=== PATIENT | male | born 1970 | race Caucasian/White ===

== ENCOUNTER → 2017-01-08 | Outpatient (CLI) | payer OTHER ==
[~2017-01-08] MED LIST: GLC/500 PO; INSDGIPEN SQ; LORA-741 PO; LOSA50TA6 PO; ONDA4TAB65 PO; PRLSR20 PO; ZOLP5TAB6 PO
[2017-01-08 12:27] LABS: BLOOD UREA NITROGEN 21 mg/dl (7-18); BUN/CREATININE RATIO 19.3 (10-20); CALCIUM 8.5 mg/dl (8.5-10.1); CARBON DIOXIDE 27 mmol/L (21-32); CHLORIDE 106 mmol/L (98-107); CHOLESTEROL 195 mg/dl (0-200); GLUCOSE 163 mg/dl (70-99); SODIUM 140 mmol/L (136-145)
[2017-01-08 12:31] LABS: CHOLESTEROL/HDL RATIO 7.8; HDL CHOLESTEROL 25 mg/dl; LDL CHOLESTEROL CALCULATED 102 mg/dl; TRIGLYCERIDES 341 mg/dl (0-150); VERY LOW DENSITY LIPOPROT CALC 68 mg/dl
[2017-01-08 12:35] LABS: ESTIMATED AVERAGE GLUCOSE 166 mg/dl; HA1C FLAG Normal (Normal)
== END | disposition home or self-care (01) ==
LOC: C.LABBFT 10:34
PROVIDERS: ATTEND Internal Medicine
DX: I10 Essential (primary) hypertension (principal); E11.65 Type 2 diabetes mellitus with hyperglycemia

== ENCOUNTER 2017-08-03 16:30 | Emergency (ER) | payer OTHER ==
[~2017-08-03] VITALS: Ht 185.4 cm; Wt 132.3 kg
[~2017-08-03 16:30] MED LIST changes: -GLC/500 PO; -LORA-741 PO; -ZOLP5TAB6 PO
[2017-08-03 16:34] VITALS: TEMP 36.9; Ht 185.4 cm; Wt 132.3 kg
[2017-08-03] MEDS ORDERED: LORAZEPAM 1 MG TAB SL STA (17:20)
[2017-08-03 17:27] VITALS: O2SAT 96
[2017-08-03] MEDS ORDERED: FRS/40 PO (17:27)
[2017-08-03] MEDS ORDERED: LIRA18IN SC (17:29)
[2017-08-03] MEDS ORDERED: GABA-113 PO ×2 (17:29)
--- NOTE | 2017-08-03 17:30 | EMERGENCY ROOM VISIT NOTE ---
History Report prepared by Horace: Prabhakar Lee Under the Supervision of: Dr. Walter Leong M.D. First contact with patient: 17:12 Chief Complaint: CHEST PAIN Stated Complaint: SOB,LF SIDED CHEST PAIN COMES/GOES Nursing Triage Summary: pt reports X alexei campo has had mid sternal cp that radiates into shoulder , today increased exertional sob and nausea History of Present Illness The patient is a 46 year old male who presents to the Emergency Room with complaints of intermittent chest pain that started a couple of days ago. He rates his pain as a 6/10 in severity. The patient describes the pain as sharp needles. He states that the chest pain episodes last for 20-30 seconds and go in phases. The patient states the pain radiates into his arm, which he describes as "sitting on my arm for too long". He reports that that he has also been experiencing intermittent nausea and shortness of breath. The patient states that he also been experiencing dizziness and lightheadedness intermittently. He reports that his vision comes and goes and becomes blurry at times. The patient states that these symptoms have not happened at the same time until today. He reports that today he also started to experience lower back pain that radiated into his left ankle. The patient states that his left foot became numb and "tingly". He states that he usually can elevate his foot and have this symptom go away, but denies any relief with elevation today. The patient admits to a history of hypertension, Diabetes Mellitus, and cholecystectomy. He reports that he has a history of lower extremity edema that he takes Lasix for. The patient states that his dose was increased from 20 mg to 40 mg a couple of weeks ago. He states that he also has a history of anxiety that he takes Lorazepam for. The patient admits that he took Lorazepam this morning. 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 The patient states that he has a family history of heart problems. He denies abdominal pain. Source of History: patient Onset: a couple of days ago Position: chest Symptom Intensity: 6/10 Quality: other (sharp needles) Timing: intermittent Associated Symptoms: + SOB, + nausea, + back pain, No abdominal pain Review of Systems All systems have been listed, reviewed, and are negative other than those previously mentioned. Please see Additional Medical History Sheet. Past Medical & Surgical Medical Problems: (1) Anxiety (2) Diabetes (3) Hypertension (4) Lower extremity edema Surgical Problems: (1) Hx of cholecystectomy Family History Cancer Diabetes mellitus Heart disease Hypertension Social History Smoking Status: Never Smoker Alcohol Use: none Drug Use: none Marital Status: Housing Status: lives with family Occupation Status: employed Current/Historical Medications Scheduled Furosemide (Lasix), 40 MG PO DAILY Gabapentin (Neurontin), 600 MG PO QAM Gabapentin (Neurontin), 300 MG PO QPM Liraglutide (Victoza), 1.8 UNITS SC QAM Metformin Hcl (Glucophage), 500 MG PO BID Omeprazole (Prilosec), 20 MG PO QAM Scheduled PRN Lorazepam (Ativan), 0.5 MG PO DAILY PRN for Anxiety Ondansetron Hcl (Zofran), 1 TAB PO Q6H PRN for Nausea or Vomiting Zolpidem Tartrate (Zolpidem Tartrate), 5 MG PO HS PRN for Sleep Allergies Coded Allergies: Acetaminophen (Verified Allergy, Mild, Headache, 08/03/17) Hydrocodone (Verified Allergy, Mild, Headache, 08/03/17) Codeine (Verified Allergy, Unknown, TAKES PERCOCET AT HOME, 08/03/17) Uncoded Allergies: SULFA (Allergy, Mild, Itching, 06/14/16) Physical Exam Vital Signs Date Time Temp Pulse Resp B/P (MAP) Pulse Ox O2 Delivery O2 Flow Rate FiO2 08/03/17 20:19 85 20 135/90 94 Room Air 08/03/17 19:12 85 20 146/111 95 Room Air 08/03/17 18:28 84 16 129/99 97 Room Air 08/03/17 17:27 96 Room Air 08/03/17 17:24 95 08/03/17 16:34 36.9 100 20 176/92 96 Room Air Physical Exam GENERAL: Patient awake, alert, oriented x 3. Patient follows commands. Patient does not appear toxic. Patient is adequately hydrated and well- nourished. Appears anxious and tearful at times. SKIN: No erythema, pallor, cyanosis or rash HEENT: Normal head, pupils equal, reactive to light and accommodation. Oral cavity and posterior pharynx appear normal. Neck: Without adenopathy, no neck vein distention. LUNGS: Clear to auscultation. No wheezes, no rales, no rhonchi. HEART: No murmurs. No gallops. No rubs ABDOMEN: Obese. No masses, no rebound, no hepatomegaly or splenomegaly. EXTREMITIES: No signs of trauma. No pedal or pretibial edema. No calf or thigh tenderness. NEUROLOGIC: Cranial nerves II-XII within normal limits. No gross motor sensory function deficits. Medical Decision & Procedures ER Provider Diagnostic Interpretation: Radiology results as stated below per my review and radiologist interpretation: CHEST 2 VIEWS ROUTINE CLINICAL HISTORY: 46 years-old Male presenting with CHEST PAIN. TECHNIQUE: PA and lateral views of the chest were obtained. COMPARISON: 02/14/2010. FINDINGS: Cardiac silhouette enlarged from prior exam. Elevation of the right hemidiaphragm new from prior. Lungs and pleural spaces clear. Osseous structures normal. Upper abdomen normal. IMPRESSION: 1. Cardiomegaly. 2. No acute cardiopulmonary disease. Electronically signed by: Rajan Salas M.D. 08/03/2017 6:20 PM Dictated Date/Time: 08/03/2017 6:18 PM Laboratory Results 08/03/17 17:36 08/03/17 17:36 Test 08/03/17 17:36 08/03/17 19:13 Red Blood Count 5.09 M/uL (4.7-6.1) Mean Corpuscular Volume 90.8 fL (80-100) Mean Corpuscular Hemoglobin 33.6 pg (25-34) Mean Corpuscular Hemoglobin Concent 37.0 g/dl (32-36) RDW Standard Deviation 39.1 fL (36.4-46.3) RDW Coefficient of Variation 11.8 % (11.5-14.5) Mean Platelet Volume 10.0 fL (7.4-10.4) Anion Gap 7.0 mmol/L (3-11) Est Creatinine Clear Calc Drug Dose 102.4 ml/min Estimated GFR () 76.4 Estimated GFR (Non- 65.9 BUN/Creatinine Ratio 13.0 (10-20) Calcium Level 9.2 mg/dl (8.5-10.1) Chemistry Specimen Hemolysis Bedside Troponin I < 0.030 ng/ml (0-0.045) Laboratory results as stated above per my review. Medications Administered Medications (Trade) Dose Ordered Sig/Adelaida Route Start Time Stop Time Status Last Admin Dose Admin Lorazepam (Ativan Tab) 1 mg NOW STAT SL 08/03/17 17:20 08/03/17 17:23 DC 08/03/17 17:30 1 MG ECG Indication: chest pain Rate (beats per minute): 88 Rhythm: normal sinus Findings: no acute ischemic change, no ectopy ED Course 1716: Past medical records reviewed. The patient was evaluated in room C09. A complete history and physical examination was performed. 1719: Ordered Ativan Tab 1 mg SL. 1950: Upon reevaluation, the patient appeared to have improvement of his symptoms. I discussed today's findings with him. The patient verbalized agreement of the treatment plan. He was discharged home. Medical Decision I considered multiple diagnoses including myocardial infarction, chest wall pain , pericarditis, myocarditis, aortic emergencies, pulmonary embolism, congestive heart failure, GI causes, anxiety, hyperventilation, anxiety and other significant cardiopulmonary disorders. The patient had a complete workup for cardiopulmonary problems. Chest x-ray reveals cardiomegaly but no acute infiltrates. He is not in failure. Blood pressure remains slightly elevated. Troponins are negative 2. The patient felt significantly better after 1 mg of Ativan. I believe much of his problem is related to his underlying anxiety. The patient will be encouraged to follow back with his family physician to discuss options about better blood pressure control. Medication Reconcilliation Current Medication List: was personally reviewed by me Blood Pressure Screening Patient's blood pressure: Elevated blood pressure Blood pressure disposition: Referred to PCP Impression Primary Impression: Atypical chest pain Additional Impression: Anxiety Scribe Attestation The scribe's documentation has been prepared under my direction and personally reviewed by me in its entirety. I confirm that the note above accurately reflects all work, treatment, procedures, and medical decision making performed by me. Departure Information Dispostion Home / Self-Care Referrals Fritz Sanchez M.D. (PCP) Patient Instructions My [facility] Additional Instructions Call your family physician tomorrow morning for an appointment this week. You may take Ativan every 6-8 hours as needed for anxiety. Discuss with your family physician options for better blood pressure control. Problem Qualifiers
[2017-08-03 17:51] LABS: HEMATOCRIT 46.2 % (42-52); MEAN CELL VOLUME 90.8 fL (80-100); MEAN CORPUSCULAR HEMOGLOBIN 33.6 pg (25-34); PLATELET COUNT 184 K/uL (130-400); RED BLOOD COUNT 5.09 M/uL (4.7-6.1); WHITE BLOOD COUNT 9.25 K/uL (4.8-10.8)
[2017-08-03 18:15] LABS: CALCIUM 9.2 mg/dl (8.5-10.1); CREATININE 1.3 mg/dl (0.60-1.40)
--- NOTE | 2017-08-03 18:22 | DIAGNOSTIC IMAGING REPORT ---
CHEST 2 VIEWS ROUTINE CLINICAL HISTORY: 46 years-old Male presenting with CHEST PAIN. TECHNIQUE: PA and lateral views of the chest were obtained. COMPARISON: 02/14/2010. FINDINGS: Cardiac silhouette enlarged from prior exam. Elevation of the right hemidiaphragm new from prior. Lungs and pleural spaces clear. Osseous structures normal. Upper abdomen normal. IMPRESSION: 1. Cardiomegaly. 2. No acute cardiopulmonary disease. Electronically signed by: Rajan Salas M.D. 08/03/2017 6:20 PM Dictated Date/Time: 08/03/2017 6:18 PM
[2017-08-03 20:19] VITALS: BP 135/90; PULSE 85; O2SAT 94
[2017-08-03] MEDS ORDERED: ZOLP5TAB6 PO (20:22)
[2017-08-03] MEDS ORDERED: GLC/500 PO (20:22)
[2017-08-03] MEDS ORDERED: LORA-741 PO (20:22)
== END 2017-08-03 20:21 | disposition home or self-care (01) ==
LOC: C.EDB 16:31 → C.EDC 20:21
DX: R07.89 Other chest pain (principal); R06.02 Shortness of breath; R11.0 Nausea; F41.9 Anxiety disorder, unspecified; E11.9 Type 2 diabetes mellitus without complications; I10 Essential (primary) hypertension; Z79.899 Other long term (current) drug therapy

== ENCOUNTER → 2018-02-19 | Outpatient (CLI) | payer OTHER ==
[~2018-02-19] MED LIST changes: +FRS/40 PO; +GABA-113 PO; +GLC/500 PO; -INSDGIPEN SQ; +LIRA18IN SC; +LORA-741 PO; -LOSA50TA6 PO; +ZOLP5TAB6 PO
[2018-02-19 12:09] LABS: BASO % 0.4 %; BASO ABS # 0.05 K/uL (0-0.2); EOS % 21.7 %; EOS ABS # 2.56 K/uL (0-0.5); HEMATOCRIT 48.6 % (42-52); HEMOGLOBIN 17.6 g/dL (14.0-18.0); IG# 0.03 K/uL (0.00-0.02); LYMPH % 26.5 %; LYMPH ABS # 3.13 K/uL (1.2-3.4); MEAN CELL VOLUME 89.2 fL (80-100); MEAN CORPUSCULAR HEMOGLOBIN 32.3 pg (25-34); MEAN CORPUSCULAR HGB CONC 36.2 g/dl (32-36); MEAN PLATELET VOLUME 10.3 fL (7.4-10.4); MONO % 6.8 %; NEUT % 44.3 %; NEUT ABS # 5.24 K/uL (1.4-6.5); PLATELET COUNT 221 K/uL (130-400); RED CELL DISTRIBUTION WIDTH CV 11.9 % (11.5-14.5); RED CELL DISTRIBUTION WIDTH SD 38.2 fL (36.4-46.3); WHITE BLOOD COUNT 11.81 K/uL (4.8-10.8)
[2018-02-19 12:16] LABS: HEMOGLOBIN A1C 9.2 % (4.5-5.6)
[2018-02-19 12:18] LABS: ALBUMIN 4.1 gm/dl (3.4-5.0); ALT/SGPT 45 U/L (12-78); AST/SGOT 14 U/L (15-37); BLOOD UREA NITROGEN 21 mg/dl (7-18); CALCIUM 9.2 mg/dl (8.5-10.1); CARBON DIOXIDE 27 mmol/L (21-32); CHOLESTEROL 265 mg/dl (0-200); CREATININE 1.32 mg/dl (0.60-1.40); GLUCOSE 286 mg/dl (70-99); POTASSIUM 3.9 mmol/L (3.5-5.1); SODIUM 134 mmol/L (136-145)
[2018-02-19 12:29] LABS: ALKALINE PHOSPHATASE 196 U/L (45-117); TOTAL PROTEIN 8.1 gm/dl (6.4-8.2)
== END | disposition home or self-care (01) ==
LOC: C.LABBFT 10:48
PROVIDERS: ATTEND Internal Medicine
DX: E11.40 Type 2 diabetes mellitus with diabetic neuropathy, unspecified (principal)

== ENCOUNTER 2019-01-03 16:31 | Inpatient (IN) ==
[2019-01-03] MEDS ORDERED: ONDANSETRON INJ 2 MG/ML 2 ML VIAL IV STA (16:54)
[2019-01-03] MEDS ORDERED: KETOROLAC TROMETHAMINE 15 MG/ML VIAL IV STA (16:54)
[2019-01-03] MEDS ORDERED: SODIUM CHLORIDE 0.9% 1000ML 1,000 ML IV SCH (17:00)
--- NOTE | 2019-01-03 17:02 | Emergency Department Note ---
ED Provider Note CHIEF COMPLAINT: Right flank and abdominal pain HISTORY OF PRESENTING ILLNESS: This is a 48-year-old male with past medical history significant for diabetes, hypertension, and cholecystectomy, who presents to the emergency department by private vehicle with his with complaint of right flank and right abdominal pain for the past 4 days. He states the pain was initially intermittent and started in his right back, the pain is now wrapping around to the front and radiates into his right upper and lower abdomen, and has been constant and severe today. He describes the pain as sharp and stabbing and rates it as 7/10. He has been taking ibuprofen, which does help with the pain, but it keeps coming back. He has had associated nausea, vomiting, and diarrhea, although he notes that he has chronic diarrhea from taking metformin and this has not been significantly worse than usual. He is also had some associated chills, but denies any fevers. He has had some dysuria, but has not had increased urination and has not noticed any blood in his urine. 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 He denies any history of kidney stones and denies any history of pain like this in the past. He denies any headaches, dizziness or syncope, chest pain, shortness of breath, cough, bloody or black stools, or unusual rash. REVIEW OF SYSTEMS: A complete 10 point review of systems was reviewed with the patient with pertinent positives and negatives as per history of present illness. All else were negative. PAST MEDICAL HISTORY: Diabetes, hypertension, hyperlipidemia, depression, anxiety, cholecystectomy SOCIAL HISTORY: Lives at home with his , he is a former smoker ALLERGIES: Reviewed in chart PHYSICAL EXAM: CONSTITUTIONAL: Pleasant and cooperative. Nontoxic appearing and in no acute distress, but appears uncomfortable from pain. Moderately dehydrated. HEENT: Normocephalic, atraumatic. PERRL, EOMI. Pharynx normal. Dry mucous membranes. NECK: Supple, full active range of motion without discomfort. RESPIRATORY: Clear to auscultation bilaterally with no wheezing, crackles, rhonchi or stridor. Equal expansion bilaterally. CARDIOVASCULAR: Regular rate and rhythm with no murmurs, rubs or gallops. Normal peripheral perfusion. No edema. GASTROINTESTINAL: Tenderness to palpation of the right upper and lower quadrants, right flank, positive guarding but no rebound tenderness. No tenderness in the left abdomen. Soft and mildly distended, obese abdomen. No palpable masses or HSM. Bowel sounds present in all quadrants. Mild right sided CVA tenderness. MUSCULOSKELETAL: Full range of motion of all joints without discomfort. INTEGUMENTARY: No rash or other significant dermatologic conditions noted. NEUROLOGIC: Alert and oriented X 4 with normal affect. Normal strength and sensation in all 4 extremities. Normal speech. Normal gait observed. ED COURSE AND MEDICAL DECISION MAKING: CC: Patient presenting with complaint of right flank and abdominal pain DIFFERENTIAL DIAGNOSIS: Includes, but not limited to gastroenteritis, gastritis, peptic ulcer disease, ureteral stone, UTI, pyelonephritis, choledocholithiasis, food poisoning, infectious colitis, appendicitis, dehydration, among others. INTERPRETATION OF LABS: No leukocytosis, mild anemia, normal platelets, hyperglycemia with mild hyponatremia, no other significant electrolyte abnormalities, normal renal function, mildly elevated alk phos, liver enzymes otherwise normal. Mildly elevated lipase. UA pending. IMAGING: CT OF THE ABDOMEN AND PELVIS WITHOUT CONTRAST CLINICAL HISTORY: Right flank pain. Abdominal pain. COMPARISON STUDY: CT of the abdomen and pelvis July 26, 2017. TECHNIQUE: Axial images of the abdomen and pelvis were obtained without IV contrast. Images were reviewed in the axial, sagittal, and coronal planes. Automated exposure control was utilized for the study. A dose lowering technique was utilized adhering to the principles of ALARA. FINDINGS: Lung bases are clear. No renal, ureteral or bladder calculi are present. There is no hydronephrosis or hydroureter. Evaluation of the remainder of the abdomen and pelvis is suboptimal on this unenhanced exam. There is probable fatty infiltration of the liver. There is no biliary ductal dilatation status post cholecystectomy. There is probable minimal peripancreatic infiltration, most evident adjacent to the uncinate process and pancreatic head. No peripancreatic fluid collection is present. This is suboptimally assessed on this unenhanced exam. A 2.2 cm nodular focus within the uncinate process on axial image 218 at 506 is noted. The caliber of small and large bowel are normal. The appendix is normal. There is minimal mesenteric infiltration. No suspicious osseous lesion is noted. There is no evidence for a bowel obstruction. IMPRESSION: 1. Subtle peripancreatic infiltration which suggests acute pancreatitis. 2.2 cm nodular focus within the uncinate process. This likely reflects edematous pancreatic tissue. A pancreatic mass or pancreatic necrosis is considered less likely however a short-term follow-up pancreatic protocol CT in 2-4 weeks is recommended. 2. No biliary ductal dilatation status post cholecystectomy. 3. Probable fatty infiltration of the liver. MEDICATION RECONCILIATION: I attest that I have personally reviewed the patient's current medication list. INITIAL VITAL SIGNS REVIEW: I reviewed the patient's initial vital signs and interpret them as follows: T: Afebrile; BP: Hypertensive; HR: Within normal limits; RR: Within normal limits; Pulse Ox: Within normal limits on room air. Blood pressure screening: The patient was found to have an elevated blood pressure, which was felt to be situational. MDM SUMMARY: Patient was evaluated at bedside, history and physical exam performed. Patient is alert and oriented, in no acute distress, but appears uncomfortable from pain, resting in stretcher. He has tenderness to palpation of the right flank with right upper and lower quadrant tenderness, slight guarding, but no rebound tenderness. The rest of the abdomen is nontender. Nontoxic-appearing and afebrile. He complains of nausea, but no active vomiting or dry heaving at this time. Orders were placed at bedside for labs, UA, IV fluid bolus for hydration, IV Zofran for nausea, IV Toradol for pain, CT abdomen/pelvis noncontrast to evaluate for right flank pain. Patient discussed with Dr. Pizano, who agrees with my assessment, plan, and disposition. Labs and imaging reviewed as above, no significant lab abnormalities. There is note of mildly elevated lipase. CT imaging appears consistent with acute pancreatitis, no other acute ab normalities noted. Patient reassessed multiple times throughout ED stay, he has remained hemodynamically stable and afebrile. His pain was initially well managed with IV Toradol, but states the pain is becoming severe again. IV morphine ordered. A second liter of IV fluids also ordered. Patient is being kept n.p.o. I spoke on the phone with Dr. Whatley, [facility] hospitalist service, who agrees to evaluate the patient for admission. Patient and his were updated on all results and plan for admission, he verbalized understanding and was agreeable to this plan. The patient was stable at time of admission. The chart was completed utilizing [employer] voice recognition software. Grammatical errors, random word insertions, pronoun errors, and incomplete sentences are an occasional consequence of this system due to software limitations, ambient noise, and hardware issues. Any formal questions or concerns about the content, text, or information contained within the body of this dictation should be directly addressed to the nurse practitioner for clarification. Impression & Plan Acute pancreatitis Past Med/Surg History Medical History Diabetes Hypertension Anxiety Lumbar radiculopathy (Inactive) Social History Preferred Language: Kinyarwanda Feels Safe at Home: Yes Smoking Status: Former smoker Hx Alcohol Use: Yes (occasional when out to dinner, last was over 2 weeks ago) Hx Substance Use: No Results & Data Vital Signs Vital Signs - 24 hr 01/03/19 16:39 01/03/19 16:54 01/03/19 18:10 Temperature 36.4 C L Temperature Source Oral Sepsis Recent Fever Within 48 Hours No Sepsis New/Unexplained Change in Mental Status No Sepsis Action Taken by Nursing No Action Required Pulse Rate 76 Pulse Rate [Right Finger] 65 Pulse Rhythm Regular Pulse Strength Normal Respiratory Rate 20 18 Respiratory Effort / Characteristics Non-Labored Spontaneous Non-Labored Spontaneous Respiratory Depth Normal Normal Respiratory Pattern Regular Blood Pressure 148/94 H Blood Pressure [Right Arm] 129/85 Blood Pressure Mean 112 Blood Pressure Mean [Right Arm] 99 Blood Pressure Position Sitting Pulse Oximetry 96 93 Oxygen Delivery Method Room Air Room Air Room Air 01/03/19 19:56 Temperature Temperature Source Sepsis Recent Fever Within 48 Hours Sepsis New/Unexplained Change in Mental Status Sepsis Action Taken by Nursing Pulse Rate Pulse Rate [Right Finger] 71 Pulse Rhythm Pulse Strength Respiratory Rate 20 Respiratory Effort / Characteristics Non-Labored Spontaneous Respiratory Depth Normal Respiratory Pattern Blood Pressure Blood Pressure [Right Arm] 129/85 Blood Pressure Mean Blood Pressure Mean [Right Arm] 99 Blood Pressure Position Pulse Oximetry 94 Oxygen Delivery Method Room Air Laboratory Data Result diagrams: 01/03/19 17:35 01/03/19 17:35 Lab Results 01/03/19 01/03/19 Range/Units 17:35 17:35 WBC 9.31 (4.8-10.8) K/uL RBC 4.33 L (4.7-6.1) M/uL Hgb 13.8 L (14.0-18.0) g/dL Hct 38.7 L (42-52) % MCV 89.4 (80-100) fL MCH 31.9 (25-34) pg MCHC 35.7 (32-36) g/dL RDW Std Deviation 38.3 (36.4-46.3) fL RDW Coeff of Flori 11.7 (11.5-14.5) % Plt Count 159 (130-400) K/uL MPV 10.0 (7.4-10.4) fL Immature Gran % (Auto) 0.2 % Neut % (Auto) 68.3 % Lymph % (Auto) 21.5 % Blackford % (Auto) 6.7 % Eos % (Auto) 3.1 % Baso % (Auto) 0.2 % Immature Gran # (Auto) 0.02 (0.00-0.02) K/uL Neut # (Auto) 6.36 (1.4-6.5) K/uL Lymph # (Auto) 2.00 (1.2-3.4) K/uL Blackford # (Auto) 0.62 H (0.11-0.59) K/uL Eos # (Auto) 0.29 (0-0.5) K/uL Baso # (Auto) 0.02 (0-0.2) K/uL Sodium 133 L (136-145) mmol/L Potassium 4.0 (3.5-5.1) mmol/L Chloride 102 (98-107) mmol/L Carbon Dioxide 26 (21-32) mmol/L Anion Gap 5.0 (3-11) BUN 14 (7-18) mg/dl Creatinine 1.09 (0.6-1.4) mg/dl Est Cr Clr Drug Dosing 114.5 ml/min Est GFR ( Amer) 93.2 Est GFR (Non-Af Amer) 80.4 BUN/Creatinine Ratio 12.4 (10-20) Glucose 292 H (70-99) mg/dl Calcium 8.1 L (8.5-10.1) mg/dl Total Bilirubin 0.4 (0.2-1) mg/dl AST 13 L (15-37) U/L ALT 27 (12-78) U/L Alkaline Phosphatase 169 H (45-117) U/L Total Protein 7.2 (6.4-8.2) gm/dl Albumin 3.3 L (3.4-5.0) gm/dl Globulin 3.9 (2.5-4.0) gm/dl Albumin/Globulin Ratio 0.8 L (0.9-2) Lipase 435 H (73-393) U/L Specimen Hemolysis Administered Medications Discontinued Medications Sodium Chloride (Nss 1000ml) 1,000 mls @ 999 mls/hr IV .Q1H1M MAURICIO Stop: 01/03/19 18:00 Last Infusion: 01/03/19 19:09 Dose: 0 mls/hr Documented by: [id number] Admin: 01/03/19 17:42 Dose: 999 mls/hr Documented by: [id number] Sodium Chloride (Nss 1000ml) 1,000 mls @ 999 mls/hr IV .Q1H1M ONE Stop: 01/03/19 19:34 Last Admin: 01/03/19 19:02 Dose: 999 mls/hr Documented by: [id number] Ketorolac Tromethamine (Toradol) 15 mg IV NOW STA Stop: 01/03/19 16:55 Last Admin: 01/03/19 17:42 Dose: 15 mg Documented by: [id number] Lorazepam (Ativan) 0.5 mg PO NOW STA Stop: 01/03/19 19:51 Last Admin: 01/03/19 19:55 Dose: 0.5 mg Documented by: [id number] Morphine Sulfate (Morphine Sulfate) 6 mg IV NOW STA Stop: 01/03/19 18:42 Last Admin: 01/03/19 19:02 Dose: 6 mg Documented by: [id number] Ondansetron HCl (Zofran) 4 mg IV NOW STA Stop: 01/03/19 16:55 Last Admin: 01/03/19 17:42 Dose: 4 mg Documented by: [id number] Discharge Plan Visit Data Chief Complaint: Abdominal Pain Stated Complaint: ABDOMINAL PAIN & LOWER R SIDE BACK PAIN ED Provider: Sakshi Pizano ED Midlevel Provider: Martina Shaw Discharge Problem: Acute pancreatitis Patient Disposition: Admitted As Inpatient Condition: Good Forms Stand Alone Forms: Call Back Authorization, [facility] Prescriptions Prescriptions: No Action cyclobenzaprine 10 mg Tablet 10 mg PO HS PRN (Reason: Muscle Pain) RF: 0 furosemide 40 mg Tablet 40 mg PO DAILY RF: 0 metformin 500 mg Tablet 500 mg PO BID RF: 0 gabapentin 600 mg Tablet 600 mg PO BID RF: 0 atorvastatin 20 mg Tablet 20 mg PO DAILY RF: 0 fluoxetine 10 mg Capsule 10 mg PO DAILY RF: 0 omeprazole 20 mg Capsule,Delayed Release(Dr/Ec) 20 mg PO DAILY RF: 0 Lantus Solostar U-100 Insulin 100 unit/mL (3 mL) Insulin Pen 20 - 35 unit SUBCUT DAILY RF: 0 Referrals Referrals: Fritz Sanchez III, MD [Primary Care Provider] -
[2019-01-03 17:46] LABS: Basophils # (auto) 0.02 K/uL (0-0.2); Basophils % (auto) 0.2 %; Eosinophils # (auto) 0.29 K/uL (0-0.5); Eosinophils % (auto) 3.1 %; Hematocrit (blood only) 38.7 % (42-52); Hemoglobin 13.8 g/dL (14.0-18.0); Immature Granulocytes # (auto) 0.02 K/uL (0.00-0.02); Immature Granulocytes % (auto) 0.2 %; Lymphocytes % (auto) 21.5 %; Mean Corpuscular Hgb Conc 35.7 g/dL (32-36); Mean Corpuscular Volume 89.4 fL (80-100); Monocytes # (auto) 0.62 K/uL (0.11-0.59); Monocytes % (auto) 6.7 %; Neutrophils # (auto) 6.36 K/uL (1.4-6.5); Neutrophils % (auto) 68.3 %; Platelet Count 159 K/uL (130-400); RDW Coefficient of Variation 11.7 % (11.5-14.5); RDW Standard Deviation 38.3 fL (36.4-46.3); Red Blood Count 4.33 M/uL (4.7-6.1); White Blood Count 9.31 K/uL (4.8-10.8)
[2019-01-03 18:11] LABS: Albumin Globulin Ratio 0.8 (0.9-2); Albumin Level 3.3 gm/dl (3.4-5.0); BUN Creatinine Ratio 12.4 (10-20); Bilirubin,Total 0.4 mg/dl (0.2-1); Calcium 8.1 mg/dl (8.5-10.1); Creatinine Clr Calc Pharmacy 114.5 ml/min; Est GFR (African American) 93.2; Est GFR (Non-African American) 80.4; Globulin 3.9 gm/dl (2.5-4.0); Total Protein 7.2 gm/dl (6.4-8.2)
--- NOTE | 2019-01-03 18:21 | CT Scan Report ---
CT OF THE ABDOMEN AND PELVIS WITHOUT CONTRAST CLINICAL HISTORY: Right flank pain. Abdominal pain. COMPARISON STUDY: CT of the abdomen and pelvis July 26, 2017. TECHNIQUE: Axial images of the abdomen and pelvis were obtained without IV contrast. Images were revi ewed in the axial, sagittal, and coronal planes. Automated exposure control was utilized for the kim dy. A dose lowering technique was utilized adhering to the principles of ALARA. FINDINGS: Lung bases are clear. No renal, ureteral or bladder calculi are present. There is no hydron ephrosis or hydroureter. Evaluation of the remainder of the abdomen and pelvis is suboptimal on this unenhanced exam. There is probable fatty infiltration of the liver. There is no biliary ductal dilata tion status post cholecystectomy. There is probable minimal peripancreatic infiltration, most evident adjacent to the uncinate process and pancreatic head. No peripancreatic fluid collection is present. This is suboptimally assessed on this unenhanced exam. A 2.2 cm nodular focus within the uncinate pr ocess on axial image 218 at 506 is noted. The caliber of small and large bowel are normal. The append ix is normal. There is minimal mesenteric infiltration. No suspicious osseous lesion is noted. There is no evidence for a bowel obstruction. IMPRESSION: 1. Subtle peripancreatic infiltration which suggests acute pancreatitis. 2.2 cm nodular focus within the uncinate process. This likely reflects edematous pancreatic tissue. A pancreatic mass or pancreat ic necrosis is considered less likely however a short-term follow-up pancreatic protocol CT in 2-4 we eks is recommended. 2. No biliary ductal dilatation status post cholecystectomy. 3. Probable fatty infiltration of the liver. Electronically signed by: Yoandy Johns M.D. 01/03/2019 6:19 PM
[2019-01-03] MEDS ORDERED: SODIUM CHLORIDE 0.9% 1000ML 1,000 ML IV ONE (18:34)
[2019-01-03] MEDS ORDERED: MoRPHine SULFATE 10 MG/ML CARP/VIAL IV STA (18:41)
--- NOTE | 2019-01-03 19:30 | History & Physical Report ---
Date of Service January 03, 2019 Assessment & Plan (1) Pancreatitis: As noted on CT AP Nodular focus also noted but radiology feels this is likely not a true mass, recs for f/u in 2-4 weeks Uncertain etiology Pt with recent statin initiation, which can cause pancreatitis s/p germania and states that this feels similar but more intense, RUQ US pending TG levels 01/2018 were over 700, repeat pending NPO, IVF, morphine, zofran (2) Hypertension: continue home meds (3) Diabetes: SSI PRN Holding metformin (4) Anxiety: continue home meds (5) Hyperlipidemia: Holding statin (6) DVT prophylaxis: Lovenox for DVT proph History of Present Illness Primary Care Provider: Fritz Sanchez MD 48 y/o M c/o abd pain. Pt stated having pain night after dinner. It has been waxing and waning since that time. His pain is worst after he eats and improves the further away he is from a meal. He then gets hungry and eats and pain returns. His pain is epigastric and moves to the RUQ and the back. He states at times it feels just like it did when he had to have his gallbladder taken out. He has had n/v. He feels no better s/p IVF and pain meds in the ED. Pt denies fever, SOB, chest pain, c/d, LE pain or swelling. No prior hx of pancreatitis. Pt states he was started on a statin about 8 weeks ago. He used to be on Victoza, but this was stopped about 2 months ago due to nausea after the injection. Allergies Allergy/AdvReac Type Severity Reaction Status Date / Time acetaminophen Allergy Mild Headache Verified 01/03/19 17:23 hydrocodone Allergy Mild Headache Verified 01/03/19 17:23 codeine Allergy Unknown TAKES Verified 01/03/19 17:23 PERCOCET AT HOME SULFA Allergy Mild Itching Uncoded 01/03/19 17:23 Home Medications Home Medications Medication Instructions Recorded Confirmed Type atorvastatin 20 mg PO DAILY 01/03/19 01/03/19 History cyclobenzaprine 10 mg PO HS PRN 01/03/19 01/03/19 History fluoxetine 10 mg PO DAILY 01/03/19 01/03/19 History furosemide 40 mg PO DAILY 01/03/19 01/03/19 History gabapentin 600 mg PO BID 01/03/19 01/03/19 History insulin glargine [Lantus Solostar 20 - 35 unit SUBCUT DAILY 01/03/19 01/03/19 History U-100 Insulin] metformin 500 mg PO BID 01/03/19 01/03/19 History omeprazole 20 mg PO DAILY 01/03/19 01/03/19 History Past Med/Surg History Medical History Diabetes Hypertension Anxiety Lumbar radiculopathy (Inactive) Social History Preferred Language: Maltese Feels Safe at Home: Yes Smoking Status: Former smoker Hx Alcohol Use: Yes (occasional when out to dinner, last was over 2 weeks ago) Hx Substance Use: No Review of Systems Pertinent positives and negatives reviewed in HPI--all others negative Physical Exam Vital Signs (Past 24 Hours): Last Vital Signs Temp 36.4 C L 01/03/19 16:39 Pulse 65 01/03/19 18:10 Resp 18 01/03/19 18:10 BP 129/85 01/03/19 18:10 Pulse Ox 93 01/03/19 18:10 Constitutional: WD/WN, vitals as above + acute distress Eyes: normal visual daniels by confrontation and + anicteric sclerae Neck: normal visual inspection and trachea midline Respiratory: normal respiratory effort, lungs clear to auscultation Cardiovascular: Rate/Rhythm: regular rate and regular rhythm Gastrointestinal (Abdomen): Inspection/Auscultation: abdomen not distended Percussion/Palpation: + abdomen tender (diffuse, worst in epigastric and RUQ) and abdomen soft Cannot assess for Cox's due to pt's inability to tolerate Musculoskeletal: Head/Neck/Chest: normocephalic and head atraumatic negative for edema, peripheral pulses intact Skin: no rashes, warm and dry Neurologic: awake; not confused Speech / Cognition: normal speech Psychiatric: Orientation: oriented x 3 Affect: + tearful affect Results & Data Diagnostic Findings CT AP: 1. Subtle peripancreatic infiltration which suggests acute pancreatitis. 2.2 cm nodular focus within the uncinate process. This likely reflects edematous pancreatic tissue. A pancreatic mass or pancreatic necrosis is considered less likely however a short-term follow-up pancreatic protocol CT in 2-4 weeks is recommended. 2. No biliary ductal dilatation status post cholecystectomy. 3. Probable fatty infiltration of the liver. Code Status & VTE Plan Code Status Full code VTE Prophylaxis Plan VTE Prophylaxis will be ordered: Yes
[2019-01-03] MEDS ORDERED: LORazepam 0.5 MG TAB PO STA (19:50)
[2019-01-03] MEDS ORDERED: GLUCOSE 40% GEL 15 GM TUBE PO PRN (21:17)
[2019-01-03] MEDS ORDERED: INSULIN ASPART 100 UNITS/ML 3 ML PEN SC SCH (21:17)
[2019-01-03] MEDS ORDERED: DEXTROSE 50% 50 ML SYRINGE IV PRN (21:17)
[2019-01-03] MEDS ORDERED: ONDANSETRON INJ 2 MG/ML 2 ML VIAL IV PRN (21:17)
[2019-01-03] MEDS ORDERED: GLUCOSE 10 TABS/TUBE PO PRN (21:17)
[2019-01-03] MEDS ORDERED: MoRPHine SULFATE 2 MG/ML CARP IV PRN (21:17)
[2019-01-03] MEDS ORDERED: CARBOHYDRATES FOR HYPOGLYCEMIA PO PRN (21:17)
[2019-01-03] MEDS ORDERED: MAGNESIUM HYDROXIDE SUSP 30 ML UDC PO PRN (21:17)
[2019-01-03] MEDS ORDERED: GLUCAGON FOR INJ 1 MG VIAL SQ PRN (21:17)
[2019-01-03 22:00] LABS: Prothrombin Time 10.4 Seconds (9.0-12.0)
[2019-01-03] MEDS: SODIUM CHLORIDE 0.9% 1000ML 1,000 ML IV SCH (22:16)
[2019-01-03] MEDS: GABAPENTIN 600 MG TAB PO SCH (22:26)
[2019-01-03] MEDS: MoRPHine SULFATE 4 MG/ML 1 ML CARP\\VIAL IV PRN (22:47)
[2019-01-04 01:29] LABS: Appearance Urine Clear (Clear); Bilirubin Urine Negative (Negative); Blood Urine Negative (Negative); Color Urine Yellow; Glucose Urine UA 3+ (Negative); Ketones Urine Negative (Negative); Leukocyte Esterase Urine Negative (Negative); Nitrite Urine Negative (Negative); Protein Urine Negative (Negative); Specific Gravity Urine 1.031 (1.000-1.030); Urobilinogen Urine Positive (Negative); pH Urine 5.5 (4.5-7.5)
[2019-01-04] MEDS: MoRPHine SULFATE 4 MG/ML 1 ML CARP\\VIAL IV PRN ×4 (03:17→17:28)
[2019-01-04] MEDS: SODIUM CHLORIDE 0.9% 1000ML 1,000 ML IV SCH (04:58)
[2019-01-04] MEDS ORDERED: HYDROmorphone INJ 2 MG/ML SYR/VIAL IV STA (06:16)
[2019-01-04] MEDS: INSULIN ASPART 100 UNITS/ML 3 ML PEN SC SCH ×3 (06:24→18:39)
[2019-01-04 06:50] LABS: Basophils # (auto) 0.02 K/uL (0-0.2); Basophils % (auto) 0.3 %; Eosinophils % (auto) 5.1 %; Hematocrit (blood only) 37.5 % (42-52); Hemoglobin 13.2 g/dL (14.0-18.0); Immature Granulocytes # (auto) 0.02 K/uL (0.00-0.02); Immature Granulocytes % (auto) 0.3 %; Lymphocytes # (auto) 2.22 K/uL (1.2-3.4); Lymphocytes % (auto) 28.1 %; Mean Corpuscular Hgb Conc 35.2 g/dL (32-36); Mean Corpuscular Volume 90.6 fL (80-100); Monocytes # (auto) 0.65 K/uL (0.11-0.59); Monocytes % (auto) 8.2 %; Neutrophils # (auto) 4.58 K/uL (1.4-6.5); Platelet Count 151 K/uL (130-400); RDW Coefficient of Variation 11.9 % (11.5-14.5); RDW Standard Deviation 39.2 fL (36.4-46.3); Red Blood Count 4.14 M/uL (4.7-6.1); White Blood Count 7.89 K/uL (4.8-10.8)
[2019-01-04 07:27] LABS: BUN Creatinine Ratio 10.3 (10-20); Calcium 6.9 mg/dl (8.5-10.1); Creatinine Clr Calc Pharmacy 131.4 ml/min; Est GFR (Non-African American) 94.9; Magnesium 1.9 mg/dl (1.8-2.4); Potassium 3.5 mmol/L (3.5-5.1)
[2019-01-04 07:30] LABS: Estimated Average Glucose 298 mg/dl; Phosphorus 3.5 mg/dl (2.5-4.9)
[2019-01-04] MEDS: ENOXAPARIN INJ 40 MG/0.4 ML SYR SQ SCH (08:19)
[2019-01-04] MEDS: FLUOXETINE HCL 10 MG CAP PO SCH (08:20)
[2019-01-04] MEDS: GABAPENTIN 600 MG TAB PO SCH ×2 (08:20→21:32)
[2019-01-04] MEDS ORDERED: CALCIUM GLUCONATE 10% 1,000 MG in SODIUM CHLORIDE 0.9% 50 ML IV STA (09:31)
[2019-01-04] MEDS: LACTATED RINGER'S 1,000 ML IV SCH ×3 (10:16→21:32)
[2019-01-04] MEDS: INSULIN GLARGINE SOLOSTAR 100 UNITS/ML 3 ML PEN SC SCH ×2 (10:16→21:30)
[2019-01-04 10:28] LABS: Albumin Level 2.6 gm/dl (3.4-5.0); Bilirubin Direct 0.1 mg/dl (0-0.2); Bilirubin,Total 0.3 mg/dl (0.2-1); Total Protein 5.9 gm/dl (6.4-8.2)
--- NOTE | 2019-01-04 18:42 | Magnetic Resonance Report ---
MR MRCP HISTORY: Generalized abdominal pain. pancreatitis; ?pancreatic mass TECHNIQUE: Abdomen and pelvis CT 01/03/2019. COMPARISON STUDY: Abdomen and pelvis CT 01/03/2019. FINDINGS: The gallbladder surgically absent. The liver, spleen, adrenal glands, and kidneys are unrem arkable. Edematous pancreatic head with mild peripancreatic edema. This is consistent with acute panc reatitis. No retroperitoneal lymphadenopathy. Focal nodular appearance to the uncinate process which measures 2.3 cm. This corresponds to the CT abnormality. The portal and splenic veins are patent. The main pancreatic duct is normal in course and caliber. No filling defects within the common bile duct to suggest a stone. The common bile duct is normal in caliber measuring 3 mm. There is mild smooth s tricturing within the mid to distal common hepatic duct. The stricture measures a total length of 2.5 cm. No intrahepatic bile duct dilatation. IMPRESSION: 1. Normal caliber common bile duct. No stones identified. 2. Mild smooth stricturing within the mid to distal common hepatic duct. No associated intrahepatic b ile duct dilatation. 3. Acute pancreatitis within the pancreatic head. There is redemonstration of the 2.3 cm nodular focu s within the uncinate process of the pancreas. This favors edematous pancreatic tissue. However, cont rast-enhanced dedicated pancreatic CT or MRI is recommended in 2-4 weeks once patient's pancreatitis is resolved to exclude the possibility of an underlying pancreatic lesion. Electronically signed by: Dewey Prather M.D. 01/04/2019 6:39 PM
[2019-01-04] MEDS: ACETAMINOPHEN 500 MG TAB PO PRN (19:12)
--- NOTE | 2019-01-04 22:11 | Hospitalist Progress Note ---
Date of Service January 04, 2019 Assessment & Plan (1) Pancreatitis: clinically and biochemically improved. cause? passed gallstone? medication? other? MRCP obtained - area of pancreatitis is in the head only. nodular focus also present -radiology feels this is focal pancreatitis rather than true mass. will ask GI to see for their opinion. trigs were <400. calcium was not high. does not use etoh. CBD on MRCP was normal size and w/o CBD stone. continue LR hydration. clears started late this evening. Present on Admission?: Yes (2) Hypertension: continue home meds (3) Diabetes: adjust basal insulin adjust novolog insulin hold metformin (4) Anxiety: continue home meds (5) Hyperlipidemia: Holding statin (6) DVT prophylaxis: Lovenox Subjective pt through this am was getting waves of abdominal pain in the RUQ this pain would radiate to the right flank and into the back pain reminded him of when he had his gall bladder out years ago some nausea no emesis no lower abdominal pain Constitutional: no fever and no chills Respiratory: + snoring; no cough and no dyspnea Cardiovascular: no chest pain Gastrointestinal: no vomiting and no diarrhea/loose stools Physical Exam Vital Signs (Past 24 Hours): Last Vital Signs Temp 37.0 C 01/04/19 15:55 Pulse 65 01/04/19 15:55 Resp 19 01/04/19 15:55 BP 128/85 01/04/19 15:55 Pulse Ox 98 01/04/19 15:55 Constitutional: well developed, well nourished and + obese; no acute distress and not ill appearing ENMT: Mouth: + oropharynx abnormality (MM DRY) Respiratory: normal respiratory effort, lungs clear to auscultation Cardiovascular: RRR, no murmur, no edema Heart Sounds: normal S1 and normal S2 Vessels: posterior tibial pulses present and dorsalis pedis pulses present; no JVD Gastrointestinal (Abdomen): Inspection/Auscultation: normal bowel sounds; abdomen not distended Percussion/Palpation: + abdomen tender (mild - RUQ) and abdomen soft; no guarding, abdomen not rigid and no hepatosplenomegaly Skin: no jaundice Psychiatric: A+Ox3, euthymic affect Results & Data Laboratory Results Laboratory Results - last 24 hr 01/03/19 01/04/19 01/04/19 22:33 01:05 06:02 WBC RBC Hgb Hct MCV MCH MCHC RDW Std Deviation RDW Coeff of Flori Plt Count MPV Immature Gran % (Auto) Neut % (Auto) Lymph % (Auto) [place]ike % (Auto) Eos % (Auto) Baso % (Auto) Immature Gran # (Auto) Neut # (Auto) Lymph # (Auto) [place] # (Auto) Eos # (Auto) Baso # (Auto) Sodium Potassium Chloride Carbon Dioxide Anion Gap BUN Creatinine Est Cr Clr Drug Dosing Est GFR ( Amer) Est GFR (Non-Af Amer) BUN/Creatinine Ratio Glucose POC Glucose 184 H 259 H Estimat Average Glucose Hemoglobin A1c Calcium Phosphorus Magnesium Total Bilirubin Direct Bilirubin AST ALT Alkaline Phosphatase Total Protein Albumin Triglycerides Cholesterol LDL Cholesterol, Calc VLDL Cholesterol, Calc HDL Cholesterol Cholesterol/HDL Ratio Lipase Urine Color Yellow Urine Appearance Clear Urine pH 5.5 Ur Specific [place] 1.031 H Urine Protein Negative Urine Glucose (UA) 3+ H Urine Ketones Negative Urine Blood Negative Urine Nitrite Negative Urine Bilirubin Negative Urine Urobilinogen Positive H Ur Leukocyte Esterase Negative 01/04/19 01/04/19 01/04/19 06:18 06:18 06:18 WBC 7.89 RBC 4.14 L Hgb 13.2 L Hct 37.5 L MCV 90.6 MCH 31.9 MCHC 35.2 RDW Std Deviation 39.2 RDW Coeff of Flori 11.9 Plt Count 151 MPV 10.0 Immature Gran % (Auto) 0.3 Neut % (Auto) 58.0 Lymph % (Auto) 28.1 Pike % (Auto) 8.2 Eos % (Auto) 5.1 Baso % (Auto) 0.3 Immature Gran # (Auto) 0.02 Neut # (Auto) 4.58 Lymph # (Auto) 2.22 Pike # (Auto) 0.65 H Eos # (Auto) 0.40 Baso # (Auto) 0.02 Sodium 137 Potassium 3.5 Chloride 105 Carbon Dioxide 26 Anion Gap 6.0 BUN 10 Creatinine 0.95 Est Cr Clr Drug Dosing 131.4 Est GFR ( Amer) 110.0 Est GFR (Non-Af Amer) 94.9 BUN/Creatinine Ratio 10.3 Glucose 283 H POC Glucose Estimat Average Glucose 298 Hemoglobin A1c 12.0 H Calcium 6.9 L Phosphorus 3.5 Magnesium 1.9 Total Bilirubin Direct Bilirubin AST ALT Alkaline Phosphatase Total Protein Albumin Triglycerides 220 H Cholesterol 108 LDL Cholesterol, Calc 43 VLDL Cholesterol, Calc 44 HDL Cholesterol 21 Cholesterol/HDL Ratio 5 Lipase Urine Color Urine Appearance Urine pH Ur Specific [place] Urine Protein Urine Glucose (UA) Urine Ketones Urine Blood Urine Nitrite Urine Bilirubin Urine Urobilinogen Ur Leukocyte Esterase 01/04/19 01/04/19 01/04/19 06:18 12:13 18:35 WBC RBC Hgb Hct MCV MCH MCHC RDW Std Deviation RDW Coeff of Flori Plt Count MPV Immature Gran % (Auto) Neut % (Auto) Lymph % (Auto) Pike % (Auto) Eos % (Auto) Baso % (Auto) Immature Gran # (Auto) Neut # (Auto) Lymph # (Auto) [place] # (Auto) Eos # (Auto) Baso # (Auto) Sodium Potassium Chloride Carbon Dioxide Anion Gap BUN Creatinine Est Cr Clr Drug Dosing Est GFR ( Amer) Est GFR (Non-Af Amer) BUN/Creatinine Ratio Glucose POC Glucose 193 H 217 H Estimat Average Glucose Hemoglobin A1c Calcium Phosphorus Magnesium Total Bilirubin 0.3 Direct Bilirubin 0.1 AST 18 ALT 32 Alkaline Phosphatase 154 H Total Protein 5.9 L Albumin 2.6 L Triglycerides Cholesterol LDL Cholesterol, Calc VLDL Cholesterol, Calc HDL Cholesterol Cholesterol/HDL Ratio Lipase 191 Urine Color Urine Appearance Urine pH Ur Specific [place] Urine Protein Urine Glucose (UA) Urine Ketones Urine Blood Urine Nitrite Urine Bilirubin Urine Urobilinogen Ur Leukocyte Esterase
[2019-01-04] MEDS ORDERED: Nursing to Pharmacy Communication ONE (23:17)
[2019-01-05] MEDS: MoRPHine SULFATE 4 MG/ML 1 ML CARP\\VIAL IV PRN (00:04)
[2019-01-05] MEDS: LACTATED RINGER'S 1,000 ML IV SCH ×3 (03:20→16:24)
[2019-01-05] MEDS: ACETAMINOPHEN 500 MG TAB PO PRN (06:28)
[2019-01-05 06:29] LABS: Hematocrit (blood only) 38.4 % (42-52); Hemoglobin 13.4 g/dL (14.0-18.0); Mean Corpuscular Hgb Conc 34.9 g/dL (32-36); Mean Corpuscular Volume 91.4 fL (80-100); Mean Platelet Volume 9.8 fL (7.4-10.4); Platelet Count 155 K/uL (130-400); RDW Coefficient of Variation 11.8 % (11.5-14.5); RDW Standard Deviation 39.7 fL (36.4-46.3); White Blood Count 7.02 K/uL (4.8-10.8)
[2019-01-05 06:56] LABS: BUN Creatinine Ratio 7.9 (10-20); Calcium 7.6 mg/dl (8.5-10.1); Creatinine Clr Calc Pharmacy 140.2 ml/min; Est GFR (Non-African American) 101.8; Potassium 3.6 mmol/L (3.5-5.1)
[2019-01-05] MEDS ORDERED: INSULIN ASPART 100 UNITS/ML 3 ML PEN SC SCH (07:30)
[2019-01-05] MEDS: INSULIN GLARGINE SOLOSTAR 100 UNITS/ML 3 ML PEN SC SCH ×2 (09:00→20:53)
[2019-01-05] MEDS: FLUOXETINE HCL 10 MG CAP PO SCH (09:02)
[2019-01-05] MEDS: ENOXAPARIN INJ 40 MG/0.4 ML SYR SQ SCH (09:02)
[2019-01-05] MEDS: GABAPENTIN 600 MG TAB PO SCH ×2 (09:02→20:54)
[2019-01-05] MEDS ORDERED: KETOROLAC 30 MG/ML VIAL IV ONE (11:30)
[2019-01-05] MEDS ORDERED: TRAMADOL HCL 50 MG TABLET PO STA (11:30)
--- NOTE | 2019-01-05 12:52 | Gastrointestinal Consultation ---
Date of Consultation January 05, 2019 Assessment & Plan (1) Acute pancreatitis: Pt is a 48 y/o male currently admitted for pancreatitis. He is s/o cholecystectomy years ago, no tobacco, + social ETOH use (last used 2 weeks ago). He did start new med which was Atorvastatin but this is listed as Class III for possible drugs that can cause pancreatitis, thus unlikely the cause of his pancreatitis. Unclear cause of pancreatitis. ? 2.3 cm nodular lesion on uncinate process of pancreas which is edematous tissue vs mass. - CL diet; may advance as tolerated. Once tolerating PO intake, pls DC IVF - Symptomatic management w antiemetics and analgesics prn - Discussed w him about EUS eval in 4-6 week's time upon his DC to r/o pancreas mass, biliary stones not picked up by imaging studies. He is agreeable and we will help arrange this. - Avoid ETOH - Low fat diet Supervising Physician Co-Signing Physician Notes I have personally seen and examined the patient with CHARLENE Moses. Her note reflects my exam and findings. I agree with her impression and plan. No obvious cause of pancreatitis. Cont current tx and slowly advance diet as tolerates ( patient is "starving" and wants to eat). We recommend an out patient EUS. Alfredo Lopes M.D. History of Present Illness Reason for Consultation: Pancreatitis, possible pancreas mass Requesting Physician: Dr. Remington Cordero Attending Physician: Dr. Alfredo Lopes History of Present Illness Pt is a 48 y/o male 48 y/o w PMHx of DM II, hyperlipidemia, HTN, anxiety, edema who presented to ED 2 days ago for c/o RUQ and epigastric abd pain which started last . He said pain radiates to back. Upon evaluation noted to have elevated Lipase in 400s, normal LFTs except mild alk phos elevation in 150s. CT abd/pelvis showed acute pancreatitis w 2.2 cm nodular focus on uncinate process likely edematous tissue. He is s/p cholecystectomy, and no signs of biliary ductal dilation. + possible fatty liver. MRCP done as f/u: CBD normal w/o stones. There is a mild smooth stricturing in mid to distal common hepatic duct w/o intrahepatic bile duct dilation. + acute pancreatitis again seen and there's the 2.3 cm nodular focus within the uncinate process ? edema vs mass. Pt is s/p cholecystectomy. He deneis tobacco uses. He does ingest ETOH socially. Last ETOH use was 2 weeks prior to his abd symptoms started. He reports new med: Atorvastatin. TG in 300s this admission. He feels better today, tolerating CL diet. Allergies Allergy/AdvReac Type Severity Reaction Status Date / Time Sulfa (Sulfonamide Allergy Mild ITCHING Verified 01/03/19 21:34 Antibiotics) codeine Allergy Unknown TAKES Verified 01/03/19 17:23 PERCOCET AT HOME hydrocodone AdvReac Mild Headache Verified 01/03/19 21:32 Home Medications Home Medications Medication Instructions Recorded Confirmed Type atorvastatin 20 mg PO DAILY 01/03/19 01/03/19 History cyclobenzaprine 10 mg PO HS PRN 01/03/19 01/03/19 History fluoxetine 10 mg PO DAILY 01/03/19 01/03/19 History furosemide 40 mg PO DAILY 01/03/19 01/03/19 History gabapentin 600 mg PO BID 01/03/19 01/03/19 History insulin glargine [Lantus Solostar 20 - 35 unit SUBCUT DAILY 01/03/19 01/03/19 History U-100 Insulin] metformin 500 mg PO BID 01/03/19 01/03/19 History omeprazole 20 mg PO DAILY 01/03/19 01/03/19 History Patient History Medical History Diabetes Hypertension Anxiety Lumbar radiculopathy (Inactive) Social History Preferred Language: Kenyan Communication Ability: Effective Freight Clerk Required: No Beliefs That Will Affect Care: None Current Living Situation: Spouse and Family Other Information That Helps Us Care for You: No Feels Safe at Home: Yes Safety Concerns: Feels Safe At This Time Smoking Status: Former smoker Hx Alcohol Use: Yes (1 glass wine) Hx Substance Use: No Review of Systems Constitutional: as per Subjective / HPI Respiratory: no cough and no dyspnea Cardiovascular: no chest pain, no lightheadedness and no edema Gastrointestinal: + abdominal pain (epigastric, RUQ but better now. ); no nausea and no vomiting Physical Exam Vital Signs (Past 24 Hours): Last Vital Signs Temp 36.5 C 01/05/19 07:42 Pulse 68 01/05/19 07:42 Resp 20 01/05/19 07:42 BP 145/84 H 01/05/19 07:42 Pulse Ox 97 01/05/19 07:42 Constitutional: WD/WN, vitals as above + obese, well groomed, cooperative and comfortable Eyes: PERRL, conjunctivae normal, anicteric sclerae ENMT: external ear and nose normal, oropharynx normal Respiratory: normal respiratory effort, lungs clear to auscultation Cardiovascular: RRR, no murmur, no edema Gastrointestinal (Abdomen): Inspection/Auscultation: normal bowel sounds Percussion/Palpation: + abdomen tender (RUQ ) and abdomen soft; no guarding and abdomen not rigid Skin: no rashes, warm and dry no jaundice Neurologic: Motor/Sensory: no asterixis Psychiatric: A+Ox3, euthymic affect Lymphatic: no lymphedema Results & Data Laboratory Results Laboratory Results - last 72 hr 01/03/19 01/03/19 01/03/19 17:35 17:35 21:40 WBC 9.31 RBC 4.33 L Hgb 13.8 L Hct 38.7 L MCV 89.4 MCH 31.9 MCHC 35.7 RDW Std Deviation 38.3 RDW Coeff of Flori 11.7 Plt Count 159 MPV 10.0 Immature Gran % (Auto) 0.2 Neut % (Auto) 68.3 Lymph % (Auto) 21.5 Boyd % (Auto) 6.7 Eos % (Auto) 3.1 Baso % (Auto) 0.2 Immature Gran # (Auto) 0.02 Neut # (Auto) 6.36 Lymph # (Auto) 2.00 Boyd # (Auto) 0.62 H Eos # (Auto) 0.29 Baso # (Auto) 0.02 PT 10.4 INR 1.0 Sodium 133 L Potassium 4.0 Chloride 102 Carbon Dioxide 26 Anion Gap 5.0 BUN 14 Creatinine 1.09 Est Cr Clr Drug Dosing 114.5 Est GFR ( Amer) 93.2 Est GFR (Non-Af Amer) 80.4 BUN/Creatinine Ratio 12.4 Glucose 292 H POC Glucose Estimat Average Glucose Hemoglobin A1c Calcium 8.1 L Phosphorus Magnesium Total Bilirubin 0.4 Direct Bilirubin AST 13 L ALT 27 Alkaline Phosphatase 169 H Total Protein 7.2 Albumin 3.3 L Globulin 3.9 Albumin/Globulin Ratio 0.8 L Triglycerides Cholesterol LDL Cholesterol, Calc VLDL Cholesterol, Calc HDL Cholesterol Cholesterol/HDL Ratio Lipase 435 H Specimen Hemolysis Urine Color Urine Appearance Urine pH Ur Specific [place] Urine Protein Urine Glucose (UA) Urine Ketones Urine Blood Urine Nitrite Urine Bilirubin Urine Urobilinogen Ur Leukocyte Esterase 01/03/19 01/04/19 01/04/19 22:33 01:05 06:02 WBC RBC Hgb Hct MCV MCH MCHC RDW Std Deviation RDW Coeff of Flori Plt Count MPV Immature Gran % (Auto) Neut % (Auto) Lymph % (Auto) Boyd % (Auto) Eos % (Auto) Baso % (Auto) Immature Gran # (Auto) Neut # (Auto) Lymph # (Auto) Boyd # (Auto) Eos # (Auto) Baso # (Auto) PT INR Sodium Potassium Chloride Carbon Dioxide Anion Gap BUN Creatinine Est Cr Clr Drug Dosing Est GFR ( Amer) Est GFR (Non-Af Amer) BUN/Creatinine Ratio Glucose POC Glucose 184 H 259 H Estimat Average Glucose Hemoglobin A1c Calcium Phosphorus Magnesium Total Bilirubin Direct Bilirubin AST ALT Alkaline Phosphatase Total Protein Albumin Globulin Albumin/Globulin Ratio Triglycerides Cholesterol LDL Cholesterol, Calc VLDL Cholesterol, Calc HDL Cholesterol Cholesterol/HDL Ratio Lipase Specimen Hemolysis Urine Color Yellow Urine Appearance Clear Urine pH 5.5 Ur Specific [place] 1.031 H Urine Protein Negative Urine Glucose (UA) 3+ H Urine Ketones Negative Urine Blood Negative Urine Nitrite Negative Urine Bilirubin Negative Urine Urobilinogen Positive H Ur Leukocyte Esterase Negative 01/04/19 01/04/19 01/04/19 06:18 06:18 06:18 WBC 7.89 RBC 4.14 L Hgb 13.2 L Hct 37.5 L MCV 90.6 MCH 31.9 MCHC 35.2 RDW Std Deviation 39.2 RDW Coeff of Flori 11.9 Plt Count 151 MPV 10.0 Immature Gran % (Auto) 0.3 Neut % (Auto) 58.0 Lymph % (Auto) 28.1 Boyd % (Auto) 8.2 Eos % (Auto) 5.1 Baso % (Auto) 0.3 Immature Gran # (Auto) 0.02 Neut # (Auto) 4.58 Lymph # (Auto) 2.22 Boyd # (Auto) 0.65 H Eos # (Auto) 0.40 Baso # (Auto) 0.02 PT INR Sodium 137 Potassium 3.5 Chloride 105 Carbon Dioxide 26 Anion Gap 6.0 BUN 10 Creatinine 0.95 Est Cr Clr Drug Dosing 131.4 Est GFR ( Amer) 110.0 Est GFR (Non-Af Amer) 94.9 BUN/Creatinine Ratio 10.3 Glucose 283 H POC Glucose Estimat Average Glucose 298 Hemoglobin A1c 12.0 H Calcium 6.9 L Phosphorus 3.5 Magnesium 1.9 Total Bilirubin Direct Bilirubin AST ALT Alkaline Phosphatase Total Protein Albumin Globulin Albumin/Globulin Ratio Triglycerides 220 H Cholesterol 108 LDL Cholesterol, Calc 43 VLDL Cholesterol, Calc 44 HDL Cholesterol 21 Cholesterol/HDL Ratio 5 Lipase Specimen Hemolysis Urine Color Urine Appearance Urine pH Ur Specific [place] Urine Protein Urine Glucose (UA) Urine Ketones Urine Blood Urine Nitrite Urine Bilirubin Urine Urobilinogen Ur Leukocyte Esterase 01/04/19 01/04/19 01/04/19 06:18 12:13 18:35 WBC RBC Hgb Hct MCV MCH MCHC RDW Std Deviation RDW Coeff of Flori Plt Count MPV Immature Gran % (Auto) Neut % (Auto) Lymph % (Auto) [place] % (Auto) Eos % (Auto) Baso % (Auto) Immature Gran # (Auto) Neut # (Auto) Lymph # (Auto) Boyd # (Auto) Eos # (Auto) Baso # (Auto) PT INR Sodium Potassium Chloride Carbon Dioxide Anion Gap BUN Creatinine Est Cr Clr Drug Dosing Est GFR ( Amer) Est GFR (Non-Af Amer) BUN/Creatinine Ratio Glucose POC Glucose 193 H 217 H Estimat Average Glucose Hemoglobin A1c Calcium Phosphorus Magnesium Total Bilirubin 0.3 Direct Bilirubin 0.1 AST 18 ALT 32 Alkaline Phosphatase 154 H Total Protein 5.9 L Albumin 2.6 L Globulin Albumin/Globulin Ratio Triglycerides Cholesterol LDL Cholesterol, Calc VLDL Cholesterol, Calc HDL Cholesterol Cholesterol/HDL Ratio Lipase 191 Specimen Hemolysis Urine Color Urine Appearance Urine pH Ur Specific [place] Urine Protein Urine Glucose (UA) Urine Ketones Urine Blood Urine Nitrite Urine Bilirubin Urine Urobilinogen Ur Leukocyte Esterase 01/05/19 01/05/19 01/05/19 06:09 06:09 08:12 WBC 7.02 RBC 4.20 L Hgb 13.4 L Hct 38.4 L MCV 91.4 MCH 31.9 MCHC 34.9 RDW Std Deviation 39.7 RDW Coeff of Flori 11.8 Plt Count 155 MPV 9.8 Immature Gran % (Auto) Neut % (Auto) Lymph % (Auto) Boyd % (Auto) Eos % (Auto) Baso % (Auto) Immature Gran # (Auto) Neut # (Auto) Lymph # (Auto) Boyd # (Auto) Eos # (Auto) Baso # (Auto) PT INR Sodium 137 Potassium 3.6 Chloride 104 Carbon Dioxide 28 Anion Gap 5.0 BUN 7 Creatinine 0.89 Est Cr Clr Drug Dosing 140.2 Est GFR ( Amer) 118.0 Est GFR (Non-Af Amer) 101.8 BUN/Creatinine Ratio 7.9 L Glucose 241 H POC Glucose 260 H Estimat Average Glucose Hemoglobin A1c Calcium 7.6 L Phosphorus Magnesium 2.0 Total Bilirubin Direct Bilirubin AST ALT Alkaline Phosphatase Total Protein Albumin Globulin Albumin/Globulin Ratio Triglycerides Cholesterol LDL Cholesterol, Calc VLDL Cholesterol, Calc HDL Cholesterol Cholesterol/HDL Ratio Lipase Specimen Hemolysis Urine Color Urine Appearance Urine pH Ur Specific [place] Urine Protein Urine Glucose (UA) Urine Ketones Urine Blood Urine Nitrite Urine Bilirubin Urine Urobilinogen Ur Leukocyte Esterase 01/05/19 11:36 WBC RBC Hgb Hct MCV MCH MCHC RDW Std Deviation RDW Coeff of Flori Plt Count MPV Immature Gran % (Auto) Neut % (Auto) Lymph % (Auto) Boyd % (Auto) Eos % (Auto) Baso % (Auto) Immature Gran # (Auto) Neut # (Auto) Lymph # (Auto) Boyd # (Auto) Eos # (Auto) Baso # (Auto) PT INR Sodium Potassium Chloride Carbon Dioxide Anion Gap BUN Creatinine Est Cr Clr Drug Dosing Est GFR ( Amer) Est GFR (Non-Af Amer) BUN/Creatinine Ratio Glucose POC Glucose 259 H Estimat Average Glucose Hemoglobin A1c Calcium Phosphorus Magnesium Total Bilirubin Direct Bilirubin AST ALT Alkaline Phosphatase Total Protein Albumin Globulin Albumin/Globulin Ratio Triglycerides Cholesterol LDL Cholesterol, Calc VLDL Cholesterol, Calc HDL Cholesterol Cholesterol/HDL Ratio Lipase Specimen Hemolysis Urine Color Urine Appearance Urine pH Ur Specific [place] Urine Protein Urine Glucose (UA) Urine Ketones Urine Blood Urine Nitrite Urine Bilirubin Urine Urobilinogen Ur Leukocyte Esterase (1) Acute pancreatitis Acute pancreatitis complication: unspecified Pancreatitis type: unspecified pancreatitis type Qualified Code(s): K85.90 - Acute pancreatitis without necrosis or infection, unspecified
[2019-01-05] MEDS: INSULIN ASPART 100 UNITS/ML 3 ML PEN SC SCH ×3 (13:57→20:55)
[2019-01-05] MEDS ORDERED: INSULIN GLARGINE SOLOSTAR 100 UNITS/ML 3 ML PEN SC SCH (21:00)
--- NOTE | 2019-01-05 21:43 | Hospitalist Progress Note ---
Date of Service January 05, 2019 Assessment & Plan (1) Pancreatitis: clinically and biochemically resolved. cause? passed gallstone? medication? other? etiology uncertain. MRCP obtained - area of pancreatitis in the head only. nodular focus also present -radiology feels this is focal pancreatitis rather than true mass. Richard saw - outpatient EUS planned for 1 month. advance diet today. can stop fluids later today. trigs were <400. calcium was not high. does not use etoh. CBD on MRCP was normal size and w/o CBD stone. hopefully d/c home in am. (2) Hypertension: continue home meds (3) Diabetes: uncontrolled increase basal insulin adjust novolog insulin again hold metformin (4) Anxiety: continue home meds (5) Hyperlipidemia: Holding statin (6) DVT prophylaxis: Lovenox (7) Headache: likely tension improved s/p toradal with ultram follow for recurrence updated at bedside today hopefully home tomorrow AM Subjective only complaint is that of headache DID improve with toradol and ultram had episode of abd pain in middle of night - resolved with morphine no abd pain, nausea, etc since no BM but passing flatus Constitutional: no fever Respiratory: no dyspnea Cardiovascular: no chest pain Gastrointestinal: no nausea and no vomiting Physical Exam Vital Signs (Past 24 Hours): Last Vital Signs Temp 36.8 C 01/05/19 15:58 Pulse 66 01/05/19 15:58 Resp 20 01/05/19 15:58 BP 136/77 01/05/19 15:58 Pulse Ox 93 01/05/19 15:58 Constitutional: well developed, well nourished and + obese; no acute distress and not ill appearing ENMT: external ear and nose normal, oropharynx normal Respiratory: normal respiratory effort, lungs clear to auscultation Cardiovascular: RRR, no murmur, no edema Heart Sounds: normal S1 and normal S2 Vessels: posterior tibial pulses present and dorsalis pedis pulses present; no JVD Gastrointestinal (Abdomen): Inspection/Auscultation: normal bowel sounds; abdomen not distended Percussion/Palpation: abdomen soft; abdomen nontender, no guarding, abdomen not rigid and no hepatosplenomegaly Skin: no jaundice Psychiatric: A+Ox3, euthymic affect Results & Data Laboratory Results Laboratory Results - last 24 hr 01/05/19 01/05/19 01/05/19 06:09 06:09 08:12 WBC 7.02 RBC 4.20 L Hgb 13.4 L Hct 38.4 L MCV 91.4 MCH 31.9 MCHC 34.9 RDW Std Deviation 39.7 RDW Coeff of Flori 11.8 Plt Count 155 MPV 9.8 Sodium 137 Potassium 3.6 Chloride 104 Carbon Dioxide 28 Anion Gap 5.0 BUN 7 Creatinine 0.89 Est Cr Clr Drug Dosing 140.2 Est GFR ( Amer) 118.0 Est GFR (Non-Af Amer) 101.8 BUN/Creatinine Ratio 7.9 L Glucose 241 H POC Glucose 260 H Calcium 7.6 L Magnesium 2.0 01/05/19 01/05/19 01/05/19 11:36 16:58 20:18 WBC RBC Hgb Hct MCV MCH MCHC RDW Std Deviation RDW Coeff of Flori Plt Count MPV Sodium Potassium Chloride Carbon Dioxide Anion Gap BUN Creatinine Est Cr Clr Drug Dosing Est GFR ( Amer) Est GFR (Non-Af Amer) BUN/Creatinine Ratio Glucose POC Glucose 259 H 268 H 156 H Calcium Magnesium (1) Diabetes Diabetes mellitus type: type 2 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 insulin use: with ad terminal makeup operator use Diabetes mellitus complication status: without complication Qualified Code(s): E11.9 - Type 2 diabetes mellitus without complications; Z79.4 - correction (current) use of insulin (2) Hyperlipidemia Hyperlipidemia type: mixed hyperlipidemia Qualified Code(s): E78.2 - Mixed hyperlipidemia (3) Pancreatitis Chronicity: acute Pancreatitis type: idiopathic Acute pancreatitis complication: no infection or necrosis Qualified Code(s): K85.00 - Idiopathic acute pancreatitis without necrosis or infection (4) Hypertension Hypertension type: essential hypertension Qualified Code(s): I10 - Essential (primary) hypertension
[2019-01-06] MEDS: ACETAMINOPHEN 500 MG TAB PO PRN (01:42)
[2019-01-06] MEDS: MoRPHine SULFATE 4 MG/ML 1 ML CARP\\VIAL IV PRN (03:34)
[2019-01-06 08:56] LABS: Hematocrit (blood only) 41.5 % (42-52); Hemoglobin 14.7 g/dL (14.0-18.0); Mean Corpuscular Hgb Conc 35.4 g/dL (32-36); Mean Corpuscular Volume 90.4 fL (80-100); Mean Platelet Volume 9.8 fL (7.4-10.4); Platelet Count 171 K/uL (130-400); RDW Coefficient of Variation 11.7 % (11.5-14.5); RDW Standard Deviation 38.6 fL (36.4-46.3); Red Blood Count 4.59 M/uL (4.7-6.1)
[2019-01-06 09:24] LABS: Est GFR (African American) 98.6; Est GFR (Non-African American) 85.1
[2019-01-06] MEDS: INSULIN GLARGINE SOLOSTAR 100 UNITS/ML 3 ML PEN SC SCH (09:40)
[2019-01-06] MEDS: INSULIN ASPART 100 UNITS/ML 3 ML PEN SC SCH (09:41)
[2019-01-06] MEDS: ENOXAPARIN INJ 40 MG/0.4 ML SYR SQ SCH (09:42)
[2019-01-06] MEDS: FLUOXETINE HCL 10 MG CAP PO SCH (09:42)
[2019-01-06] MEDS: GABAPENTIN 600 MG TAB PO SCH (09:42)
--- NOTE | 2019-01-12 06:15 | Discharge Summary ---
Date of Service date of admission - January 03, 2019 date of discharge - January 05, 2019 Admission HPI Per Admitting Provider 48 y/o male who presented with c/o abd pain. Pt stated having pain night after dinner. It has been waxing and waning since that time. His pain is worst after he eats and improves the further away he is from a meal. He then gets hungry and eats and pain returns. His pain is epigastric and moves to the RUQ and the back. He states at times it feels just like it did when he had to have his gallbladder taken out. He has had n/v. He feels no better s/p IVF and pain meds in the ED. Pt denies fever, SOB, chest pain, c/d, LE pain or swelling. No prior hx of pancreatitis. Pt states he was started on a statin about 8 weeks ago. He used to be on Victoza, but this was stopped about 2 months ago due to nausea after the injection. Principal Diagnosis acute pancreatitis, etiology uncertain Discharge Exam Constitutional well developed, well nourished and + obese; no acute distress and not ill appearing ENMT external ear and nose normal, oropharynx normal Respiratory normal respiratory effort, lungs clear to auscultation Cardiovascular RRR, no murmur, no edema Heart Sounds: normal S1 and normal S2 Vessels: posterior tibial pulses present and dorsalis pedis pulses present; no JVD Gastrointestinal (Abdomen) Inspection/Auscultation: normal bowel sounds; abdomen not distended Percussion/Palpation: abdomen soft; abdomen nontender, no guarding, abdomen not rigid and no hepatosplenomegaly Skin no jaundice Psychiatric A+Ox3, euthymic affect Discharge Data Allergies Allergy/AdvReac Type Severity Reaction Status Date / Time Sulfa (Sulfonamide Allergy Mild ITCHING Verified 01/03/19 21:34 Antibiotics) codeine Allergy Unknown TAKES Verified 01/03/19 17:23 PERCOCET AT HOME hydrocodone AdvReac Mild Headache Verified 01/03/19 21:32 Consultations [facility] Ordered Studies 1. CT abd/pelvis: IMPRESSION: 1. Subtle peripancreatic infiltration which suggests acute pancreatitis. 2.2 cm nodular focus within the uncinate process. This likely reflects edematous pancreatic tissue. A pancreatic mass or pancreatic necrosis is considered less likely however a short-term follow-up pancreatic protocol CT in 2-4 weeks is recommended. 2. No biliary ductal dilatation status post cholecystectomy. 3. Probable fatty infiltration of the liver. 2. MRCP: IMPRESSION: 1. Normal caliber common bile duct. No stones identified. 2. Mild smooth stricturing within the mid to distal common hepatic duct. No associated intrahepatic bile duct dilatation. 3. Acute pancreatitis within the pancreatic head. There is redemonstration of t he 2.3 cm nodular focus within the uncinate process of the pancreas. This favors edematous pancreatic tissue. However, contrast-enhanced dedicated pancreatic CT or MRI is recommended in 2-4 weeks once patient's pancreatitis is resolved to exclude the possibility of an underlying pancreatic lesion. Hospital Course (1) Pancreatitis: Clinically and biochemically resolved with typical supportive care measures. Cause was uncertain. Possibilities included passed gallstone vs medication- induced vs other. Triglycerides were <400, calcium was normal, and the patient does not drink alcohol. MRCP was obtained showing pancreatitis in the head only. Nodular focus also present - radiology felt this was focal pancreatitis rather than true mass. [id number] Demetrius WATKINS saw the patient in consult and outpatient EUS planned for 1 month post-discharge to ensure the nodular focus is not cancer. The patient was resumed on a diet and this was advanced without difficulty. He was advised to follow a low-fat diet for at least 2 weeks post-discharge. (2) Hypertension: continue home meds (3) Diabetes: This was uncontrolled during the stay. Hemoglobin a1c was 12%. Lantus dose was recommended at 30 units twice a day and novolog 25 units with meals. He was also asked to resume his metformin twice daily. He will need close follow-up for this given how uncontrolled he has been in the past. (4) Anxiety: continue home meds (5) Hyperlipidemia: Holding statin at discharge in the rare event his statin caused his pancreatitis (6) Headache: likely tension improved s/p toradal with ultram during the stay Total Time Total Time Spent Total Time Spent (In Minutes): 35 Total Time Includes: Examination of the Patient, Discharge Planning, Medication Reconciliation and Communication With Other Providers Discharge Plan Discharge Items Patient Disposition: Home - Self-Care Reason For Visit: PANCREATITIS Discharge Diagnosis: acute pancreatitis - uncertain etiology; outpatient follow- up with Demetrius WATKINS needed. Condition: Good Discharge Goals: Decrease discomfort, Diagnostic testing and Therapeutic intervention Activity: Resume your previous activity Non-emergency contact: Primary Care Provider and [employer] Hole [employer]ooter Call non-emergency contact if: you have any medication questions, your symptoms worsen, your pain is not controlled, your pain is worsening, your pain is unusual for you, your pain is concerning for you and your temperature is above 100.5 Follow-up/Referrals: Fritz Sanchez III, MD [Primary Care Provider] - 01/13/19 1:50 pm (Please, follow up with Dr. Sanchez on January 13 at 1:50 pm. *If you need to change this appointment, call the office at [phone].) Alfredo Lopes [Physician] - (follow-up with Demetrius WATKINS within 4-6 weeks for outpatient endoscopic ultrasound) Diet: Carb Consistent or DM2 and Low Fat Addtl Provider Instructions: From Remington Benavides - Hospitalist: You were treated for acute pancreatitis with fluids and bowel rest. The pancreatitis improved with these measures. The exact cause of your pancreatitis was uncertain. You were restarted on a diet and tolerated this. Your MRI of the bile ducts and pancreas did not show any residual gallstones or abnormalities of those ducts. Demetrius WATKINS saw you in consult and have recommended an endoscopic ultrasound in 4-6 weeks to get further information on your pancreas. You were also seen by the patient educator. They have recommended short-acting insulin prior to meals - I agree with that recommendation. Recommendations: 1. NOVOLOG (short-acting meal-tme insulin) -- take 25 units with breakfast, 25 units with lunch, and 25 units with dinner. 2. resume your metformin. 3. hold your lipitor for now. 4. follow a low fat diet for 2 weeks. 5. increase your LANTUS to 30 units TWICE DAILY. 6. NO ALCOHOL for 10 days. 7. NO FRIED OR FAST FOODS for 2 weeks. 8. Follow-up - see your family doctor within 1 week. See [facility] at [facility] within 1 month. Return to [facility] if - * you have fever over 100.5 degrees * you have recurrent abdominal pain * you have persistent nausea or vomiting * any other concerns Prescriptions: New Novolog Flexpen U-100 Insulin 100 unit/mL Insulin Pen 25 unit SC AC Qty: 5 RF: 2 Continued cyclobenzaprine 10 mg Tablet 10 mg PO HS PRN (Reason: Muscle Pain) RF: 0 furosemide 40 mg Tablet 40 mg PO DAILY RF: 0 metformin 500 mg Tablet 500 mg PO BID RF: 0 gabapentin 600 mg Tablet 600 mg PO BID RF: 0 fluoxetine 10 mg Capsule 10 mg PO DAILY RF: 0 omeprazole 20 mg Capsule,Delayed Release(Dr/Ec) 20 mg PO DAILY RF: 0 Changed Lantus Solostar U-100 Insulin 100 unit/mL (3 mL) Insulin Pen 30 unit SUBCUT BID Qty: 5 RF: 1 Discontinued atorvastatin 20 mg Tablet 20 mg PO DAILY RF: 0 Stand-Alone Forms: Call Back Authorization, [facility], Work/School Release (Inpt) Krames/Other Patient Handouts: Pancreatitis Acute Dc Discharge Orders: Discharge Order (Routine); Ordered 01/06/19 Ordered By: Remington Benavides Admission Data Admit Date/Time: 01/03/19 19:29 Attending Provider: Remington Benavides Admit Provider: Kristen Whatley Primary Care Provider: Fritz Sanchez III Other Providers: Alfredo Lopes Service: Medical Other Interventions: Discharge Summary Assessment (RN) Last Done: 01/06/19 11:23 Pending Studies at Discharge: No DC Date/Time DO NOT enter until pt leaves facility: 01/06/19 11:30
== END 2019-01-06 11:30 | disposition home or self-care (01) | DRG 440 ==
LOC: ED 16:31 → SUATTDRO 19:29 → 4W 19:29
DX: E78.5 Hyperlipidemia, unspecified; I10 Essential (primary) hypertension; E11.9 Type 2 diabetes mellitus without complications; Z68.35 Body mass index [BMI] 35.0-35.9, adult; Z87.891 Personal history of nicotine dependence; Z88.5 Allergy status to narcotic agent; F41.9 Anxiety disorder, unspecified; Z51.81 Encounter for therapeutic drug level monitoring; Z88.2 Allergy status to sulfonamides; Z88.6 Allergy status to analgesic agent; G44.209 Tension-type headache, unspecified, not intractable; Z79.4 Long term (current) use of insulin; F32.9 Major depressive disorder, single episode, unspecified; Z79.899 Other long term (current) drug therapy; E66.3 Overweight; Z90.49 Acquired absence of other specified parts of digestive tract; K85.90 Acute pancreatitis without necrosis or infection, unspecified